=== PATIENT | female | born 1965 | race Caucasian/White ===

== ENCOUNTER → 2016-09-08 07:49 | Outpatient (CLI) | payer BC ==
[2016-03-25 00:46] VITALS: BMI 30.8
[~2016-09-08 07:49] MED LIST: HYDROCODON-ACE1 EAC7 PO; LIPITOR20 MG PO; MIRALAX17 GM PO; ULTRAM50 MG PO; ZOFRAN ODT4 MG/UDTAB PO
[2016-09-08 08:26] LABS: ALBUMIN 3.8 g/dL (3.4-5.0); BILIRUBIN - DIRECT 0.13 mg/dL (0.00-0.30); BILIRUBIN - INDIRECT 0.49 mg/dL (0.00-1.00); BILIRUBIN - TOTAL 0.62 mg/dL (0.2-1.3); PROTEIN - SERUM 7.5 g/dL (6.4-8.2)
== END | disposition home or self-care (01) ==
LOC: D.LAB 07:49 → D.US 08:30
PROVIDERS: Internal Medicine Gastroenterology
DX: K76.0 Fatty (change of) liver, not elsewhere classified (principal)

== ENCOUNTER → 2016-09-12 07:53 | Outpatient (CLI) | payer BC ==
[2016-03-25 00:46] VITALS: BMI 30.8
[2016-09-12 08:56] LABS: AMYLASE - SERUM 49 U/L (25-115); LIPASE 96 U/L (73-393)
== END | disposition home or self-care (01) ==
LOC: D.CT 07:53
PROVIDERS: Internal Medicine Gastroenterology
DX: R10.13 Epigastric pain (principal)

== ENCOUNTER → 2017-03-09 08:38 | Outpatient (CLI) | payer BC ==
[2016-03-25 00:46] VITALS: BMI 30.8
[2017-03-09 09:33] LABS: ALBUMIN 3.6 g/dL (3.4-5.0); BILIRUBIN - DIRECT 0.06 mg/dL (0.00-0.30); BILIRUBIN - INDIRECT 0.38 mg/dL (0.00-1.00); BILIRUBIN - TOTAL 0.44 mg/dL (0.2-1.3); PROTEIN - SERUM 7.5 g/dL (6.4-8.2)
== END | disposition home or self-care (01) ==
LOC: D.US 08:38
PROVIDERS: Internal Medicine Gastroenterology
DX: K76.0 Fatty (change of) liver, not elsewhere classified (principal)

== ENCOUNTER → 2017-10-08 08:11 | Outpatient (CLI) | payer OTHER ==
[2016-03-25 00:46] VITALS: BMI 30.8
[2017-10-08 10:14] LABS: ALBUMIN 3.5 g/dL (3.4-5.0); BILIRUBIN - DIRECT 0.12 mg/dL (0.00-0.30); BILIRUBIN - INDIRECT 0.48 mg/dL (0.00-1.00); BILIRUBIN - TOTAL 0.6 mg/dL (0.2-1.3); PROTEIN - SERUM 6.8 g/dL (6.4-8.2)
== END | disposition home or self-care (01) ==
LOC: D.US 09-28 08:30
PROVIDERS: Internal Medicine Gastroenterology
DX: K76.0 Fatty (change of) liver, not elsewhere classified (principal)